=== PATIENT | female | born 1965 | race Caucasian/White ===

== ENCOUNTER 2018-02-03 15:28 | Outpatient (CLI) | payer BC ==
[2018-02-03 16:44] LABS: Hemoglobin 13.7 g/dL (12.0-16.0); Mean Corpuscular Hemoglobin 32.6 pg (27.0-31.0); Mean Corpuscular Volume 90.6 fL (78.0-98.0); Mean Platelet Volume 6.4 fL (7.4-10.4); Platelet Count 480 thou/uL (130-400); RBC Distribution Width 11.3 % (11.5-14.5); White Blood Cell (WBC) Count 10.8 thou/uL (4.8-10.8)
[2018-02-03 16:51] LABS: BHCG - Serum Negative (NEGATIVE); Pregs Control Background? CLEAR/WHITE (CLR/WHITE); Pregs Control Bar Appear? YES (CONTROL BAR)
[2018-02-03 17:02] LABS: Anion Gap 13 mmol/L (10-20); BUN (Urea Nitrogen) 16 mg/dL (9.8-20.1); Calc. Creatinine Clearance 0 mL/min (70-130); Calcium 9.6 mg/dL (7.8-10.44); Carbon Dioxide 26 mmol/L (22-29); Chloride 101 mmol/L (98-107); Estimated GFR-MDRD 55; Glucose 93 mg/dL (70-105); Sodium 137 mmol/L (136-145)
--- NOTE | 2018-02-04 12:27 | EKG ---
Test Reason : Blood Pressure : / mmHG Vent. Rate : 078 BPM Atrial Rate : 078 BPM P-R Int : 138 ms QRS Dur : 088 ms QT Int : 402 ms P-R-T Axes : 007 053 027 degrees QTc Int : 458 ms Normal sinus rhythm Low voltage QRS Possible Inferior infarct , age undetermined No previous ECGs available Confirmed by CORTES URBAN, DR. Mueller ([id number]) on 02/04/2018 12:26:30 PM Referred By: NIK Confirmed By:DR. Ami KOLB MD
== END 2018-02-03 15:29 | disposition home or self-care (01) ==
LOC: LABBT 15:28
PROVIDERS: ATTEND Obstetrics & Gynecology
DX: Z01.818 Encounter for other preprocedural examination (principal); N92.6 Irregular menstruation, unspecified
CPT/HCPCS: 80048; 84703; 85027; 93005; 93010

== ENCOUNTER 2018-02-07 05:48 | Day surgery (SDC) | payer BC ==
[2018-02-03 15:46] VITALS: BMI 33.5
[2018-02-07] MEDS ORDERED: Calcium Chloride 1 GM/10 ML Abboject SYRINGE ONE (06:46)
[2018-02-07] MEDS ORDERED: Bupivacaine HCl 0.5%/Epinephrine 1:200,000/PF 30 ml Vial ONE (06:46)
[2018-02-07] MEDS ORDERED: Thrombin 5000 UNITS/5 ML VIAL ONE (06:46)
[2018-02-07] MEDS ORDERED: Fentanyl 250 MCG/5 ML VIAL ONE (06:48)
[2018-02-07] MEDS ORDERED: Fentanyl 100 MCG/2 ML VIAL ONE (06:48)
[2018-02-07] MEDS ORDERED: Famotidine/PF 20 mg/2ml Vial ONE (06:48)
[2018-02-07] MEDS ORDERED: CEFAZOLIN/Water 2 GM/20 ML SYRINGE ONE (07:03)
[2018-02-07] MEDS ORDERED: Scopolamine 1.5 mg/72 hour Patch ONE (07:04)
[2018-02-07] MEDS ORDERED: hydrALAZINE 20 MG/ML VIAL ONE (08:31)
[2018-02-07] MEDS ORDERED: Promethazine HCl 25 MG/ML VIAL SLOW IVP PRN (09:55)
[2018-02-07] MEDS ORDERED: Ondansetron HCl/PF 4 MG/2 ML Vial IVP PRN ×2 (09:55→10:29)
[2018-02-07] MEDS ORDERED: Promethazine HCl 25 MG/ML VIAL IM PRN ×2 (09:55→10:29)
[2018-02-07] MEDS ORDERED: Meperidine HCl/PF 25 MG/ML VIAL SLOW IVP PRN (09:55)
[2018-02-07] MEDS ORDERED: Zolpidem Tartrate 5 MG TAB PO PRN (10:29)
[2018-02-07] MEDS ORDERED: HYDROcodone/Acetaminophen 10/325 mg Tablet PO PRN ×2 (10:29)
[2018-02-07] MEDS ORDERED: Simethicone Chewable 80 MG TAB PO PRN (10:29)
[2018-02-07] MEDS ORDERED: diphenhydrAMINE 25 MG CAP PO PRN (10:29)
[2018-02-07] MEDS ORDERED: Bisacodyl 10 MG SUPP PR PRN (10:29)
[2018-02-07] MEDS ORDERED: PROPOFOL 20 ML ONE (11:39)
[2018-02-07] MEDS ORDERED: Promethazine HCl 25 MG/ML VIAL ONE (11:57)
[2018-02-07] MEDS ORDERED: Ondansetron ODT 4 MG TAB ONE (12:14)
--- NOTE | 2018-02-07 13:54 | OP ---
DATE OF SERVICE: 02/07/2018 ADMITTING DIAGNOSES: 1. A 53-year-old female with menorrhagia and dysmenorrhea. 2. Fibroid uterus. 3. Irregular menstruation. 4. Body mass index of 34.25. POSTOPERATIVE DIAGNOSES: 1. A 53-year-old female with menorrhagia and dysmenorrhea. 2. Fibroid uterus. 3. Irregular menstruation. 4. Body mass index of 34.25. SURGEON: Darcie Sommers M.D. EXPORT FREIGHT SPECIALIST: None. PROCEDURES PERFORMED: 1. Robotic total laparoscopic hysterectomy. 2. Bilateral salpingectomy. 3. Lysis of adhesions. 4. Enterolysis. 5. Autologous hepatocyte infusion. ESTIMATED BLOOD LOSS: Less than 100 mL URINE OUTPUT: Clear draining in the [place] approximately 300 mL at the end of the case. ANESTHESIA: General. SPECIAL MEDICATIONS: Ancef 2 grams IV guidance and control system engineer to the OR. CLINICAL HISTORY: The patient is a 53-year-old female, who presented to my office for eval uation for her irregular menses. She had been on control pills since the except for her pregnancies. She had 3 pregnancies that went to term, one was a low transverse section, the following two are vaginal after cesareans. The patient noted that for several years she did n ot have a withdrawal bleed when she had a hormone free interval in the last week of her pills, but la st month, she started having periods again and then to begin rapidly cycling having another period in 2 weeks' time. She also noted completion of her child birthing and desired evaluation. She had an ultrasound and exam done, which showed a fibroid uterus and given her long history of being on control pills, it was a concern that she may not regulate with hormonal methods. The risks, benefits , and possible complications as well as alternatives were discussed for surgical management versus co nservative management. The patient chose to have a hysterectomy. DETAILS OF THE PROCEDURE: The patient was taken to the operating room where general anesthesia was o btained. She was laid in the supine position with her legs in the Yellofin stirrups. She was preppe d and draped in the usual sterile fashion. A weighted speculum was placed into the vagina and a Fole y catheter was placed atraumatically with drainage of clear urine. The JAYLON uterine manipulator was placed after dilation was performed and stay sutures were placed to secure this JAYLON to the uterus. Once this uterine manipulator was established, the legs were placed in a downward position. All inst ruments were removed except for the manipulator and attention was turned to the abdomen, where the ab domen was tented and incision was made in the lower infraumbilical border and a direct view 5 mm troc ar was used to enter into the abdomen. Once this was placed, insufflation of the abdomen occurred an d the patient was placed in steep Trendelenburg. The accessory ports were placed on the left and rig ht lower quadrants under direct visualization of 8 mm trocars. The assistance port was then placed i n the right lower quadrant below the right accessory ports that with an 11 mm trocar. Once these tro cars were placed, the robot was docked and the surgery ensued as follows. The salpinx on the right s yamilet was grasped and elevated and noted normal ovary. The mesosalpinx was dissected to release the ri ght salpinx and the round ligament was taken down with the monopolar spatula after desiccating with t he bipolar clamps. Once the round was taken and the IP was then grasped and desiccated with successi ve bites. The vascular space was then opened up and a bladder flap was created anteriorly, skeletoni zing the uterine arteries. The same was performed on the opposite side, releasing the left salpinx t aking down the round. The IP was taken down then the uterine vessels were skeletonized. The Bipolar was used to desiccate and occlude the uterine arteries on the left. The bladder flap was created an teriorly and connected to the opposite side, creating the shelf. The arteries on the opposite side w ere taken down and ligated. This allowed for more defined uterine shelf. The juncture of the cervic al vaginal area was identified and circumferential incision was made, releasing the uterus and allowi ng the uterus to drop downward when pulled from the outside into the vagina, it was maintained there to keep insufflation in the abdomen. The vaginal cuff was then closed with a running V-Loc suture wi th excellent hemostasis afterwards. The surgery was technically difficult, mainly because of the bow el getting in the way of the visualization. Once the cuff was closed, the abdomen was copiously irri gated and autologous hepatocyte solution was placed over the denuded areas on the ovarian pedicles as well as the vaginal cuff. Once the infusion was completed, the trocar sites were removed after undo cking the robot under direct visualization and the abdomen was deflated of the CO2 gas. The 11 mm as sistance port site and the umbilicus were both closed at the fascia using a UR needle. The skin was then closed with a 3-0 Monocryl with excellent hemostasis. Steri-Strips and Mastisol were placed ove r these incisions and Band-Aids were placed over these. The uterus was then removed from the vagina and sent off for pathology and the patient was cleansed and redraped and transferred to a [facility] recovery room in satisfactory condition. All needle, sponge, lap, and instrument counts were bruce ect x2. There were no other issues surrounding this surgery.
[2018-02-07] MEDS ORDERED: Glycopyrrolate 0.2 MG/ML 5 ML SYRINGE ONE (15:39)
[2018-02-07] MEDS ORDERED: Dexamethasone 20 MG/5 ML VIAL ONE (15:39)
[2018-02-07] MEDS ORDERED: Ketorolac Tromethamine 30 MG/ML VIAL ONE (15:39)
[2018-02-07] MEDS ORDERED: Lidocaine 1% PF 5 ML VIAL ONE (15:39)
[2018-02-07] MEDS ORDERED: Esmolol 100 MG/10 ML VIAL ONE (15:39)
[2018-02-07] MEDS ORDERED: Ondansetron HCl/PF 4 MG/2 ML Vial ONE (15:39)
[2018-02-07] MEDS ORDERED: PROPOFOL 200 MG/20 ML VIAL ONE (15:39)
[2018-02-07] MEDS ORDERED: ePHEDrine/0.9% NaCl/PF SYRINGE 50 mg/10 ml ONE (15:39)
[2018-02-07] MEDS: Ketorolac Tromethamine 30 MG/ML VIAL IVP SCH ×3 (16:13→22:32)
[2018-02-07] MEDS: Lactated Ringer's 1,000 ML IV SCH (17:55)
[2018-02-08] MEDS: Lactated Ringer's 1,000 ML IV SCH ×2 (02:26→04:48)
[2018-02-08] MEDS: Ketorolac Tromethamine 30 MG/ML VIAL IVP SCH (04:54)
[2018-02-08 08:14] VITALS: BP 117/59
[2018-02-08 11:48] VITALS: TEMP 97.9
[2018-02-12] MEDS ORDERED: Ibuprofen 800 MG TAB PO SCH (22:00)
== END 2018-02-08 13:20 | disposition home or self-care (01) ==
LOC: SDC 05:48 → 3SE 12:48 → EDSTATUS 15:51 → SDC 02-08 13:20
PROVIDERS: ATTEND Obstetrics & Gynecology
PROC: 0UT94ZZ Resection of Uterus, Percutaneous Endoscopic Approach (ICD-10-PCS; principal; 2018-02-07)
PROC: 0UT74ZZ Resection of Bilateral Fallopian Tubes, Percutaneous Endoscopic Approach (ICD-10-PCS; principal; 2018-02-07)
DX: D25.9 Leiomyoma of uterus, unspecified (principal); N73.6 Female pelvic peritoneal adhesions (postinfective); I10 Essential (primary) hypertension; K21.9 Gastro-esophageal reflux disease without esophagitis; F41.9 Anxiety disorder, unspecified; Z68.34 Body mass index [BMI] 34.0-34.9, adult; Z79.899 Other long term (current) drug therapy
CPT/HCPCS: 88307; 96374; 96375; 96376; A4216; J0131; J0360; J0670; J1100; J1885; J2001; J2405; J2550; J2704; J3010; Q0162; S0028

== ENCOUNTER 2018-06-20 15:15 | Outpatient (CLI) | payer BC ==
--- NOTE | 2018-06-20 17:52 | MRI ---
LEFT KNEE MRI WITHOUT IV CONTRAST 06/20/18 HISTORY: 53-year-old female with history of internal derangement of the left knee, M23.92, left knee pain for several months without associated recent injury. Multiplanar and multisequence MRI examination of the left knee is performed. There is joint fluid wit h distention of the suprapatellar recess as well as a moderate sized popliteal fossa cyst. There is t ricompartment articular cartilage loss including central and lateral patellar facet cartilage and med ial compartment cartilage loss followed by lateral compartment cartilage loss. Irregular flap tear of the posterior horn of the medial meniscus near the posterior root. Focal area of abnormal marrow tara ma involving the anterior aspect of the medial tibial plateau which may well represent an insufficien cy type fracture. The lateral meniscus appears unremarkable. The anterior and posterior cruciate liga ments, collateral ligament complexes and quadriceps and patellar tendons and extensor mechanism are u nremarkable. No acute osteochondral defect. IMPRESSION: Evidence for joint effusion with some distention of the suprapatellar recess as well as small to mode rate popliteal fossa cyst. Irregular flap tear posterior horn, posterior root medial meniscus. Small focus of marrow signal involving the anterior medial tibial plateau, possibly a small insufficiency f racture. Other findings as above. POS: VALDEZ
== END 2018-06-20 15:16 | disposition home or self-care (01) ==
LOC: BICMRI 15:15
PROVIDERS: ATTEND Orthopaedic Surgery
DX: M23.92 Unspecified internal derangement of left knee (principal); M25.462 Effusion, left knee; S83.242A Other tear of medial meniscus, current injury, left knee, initial encounter; M71.22 Synovial cyst of popliteal space [Baker], left knee; R93.7 Abnormal findings on diagnostic imaging of other parts of musculoskeletal system

== ENCOUNTER 2018-07-10 05:08 | Outpatient (CLI) | payer BC ==
[2018-07-10 09:34] LABS: #Basophils 0.1 thou/uL (0.0-0.2); #Eosinphils 0.3 thou/uL (0.0-0.7); #Lymphocytes 2.2 thou/uL (1.20-3.40); #Monocytes 0.9 thou/uL (0.11-0.59); #Neutrophils 7.9 thou/uL (1.40-6.50); %Basophils 0.7 % (0.0-1.0); %Eosinophils 2.3 % (0.0-10.0); %Lymphocytes 19.2 % (21.0-51.0); %Monocytes 7.6 % (0.0-10.0); %Neutrophils 70.1 % (42.0-75.0); Hemoglobin 14.2 g/dL (12.0-16.0); Mean Corpuscular HGB CONC 32.5 g/dL (32.0-36.0); Mean Corpuscular Hemoglobin 29.9 pg (27.0-31.0); Mean Corpuscular Volume 92.1 fL (78.0-98.0); Mean Platelet Volume 6.8 fL (7.4-10.4); Platelet Count 476 thou/uL (130-400); RBC Distribution Width 11.8 % (11.5-14.5); Red Blood Cell (RBC) Count 4.74 mill/uL (4.20-5.40); White Blood Cell (WBC) Count 11.2 thou/uL (4.8-10.8)
[2018-07-10 09:51] LABS: Anion Gap 14 mmol/L (10-20); BUN (Urea Nitrogen) 17 mg/dL (9.8-20.1); Calc. Creatinine Clearance 0 mL/min (70-130); Calcium 10.1 mg/dL (7.8-10.44); Carbon Dioxide 29 mmol/L (22-29); Chloride 98 mmol/L (98-107); Estimated GFR-MDRD 52; Glucose 91 mg/dL (70-105); Potassium 3.5 mmol/L (3.5-5.1); Sodium 137 mmol/L (136-145)
== END 2018-07-10 05:09 | disposition home or self-care (01) ==
LOC: LABBT 05:08
PROVIDERS: ATTEND Orthopaedic Surgery
DX: Z01.818 Encounter for other preprocedural examination (principal); S83.242A Other tear of medial meniscus, current injury, left knee, initial encounter
CPT/HCPCS: 80048; 85025; 93005; 93010

== ENCOUNTER 2018-07-16 06:08 | Day surgery (SDC) | payer BC ==
[2018-07-16] MEDS ORDERED: Scopolamine 1.5 mg/72 hour Patch ONE (06:50)
[2018-07-16] MEDS ORDERED: Midazolam HCl 2 mg/2 ml Vial ONE (06:50)
[2018-07-16] MEDS ORDERED: Ondansetron PF 4 MG/2 ML Vial ONE (06:50)
[2018-07-16] MEDS ORDERED: Bupivacaine HCl 0.5%/Epinephrine 1:200,000/PF 30 ml Vial ONE (06:54)
[2018-07-16] MEDS ORDERED: CEFAZOLIN 2 GM/50 ML BAG ONE (06:59)
[2018-07-16] MEDS ORDERED: Fentanyl 100 MCG/2 ML VIAL ONE (07:42)
[2018-07-16] MEDS ORDERED: HYDROcodone/Acetaminophen 5/325 mg Tablet ONE (09:33)
--- NOTE | 2018-07-16 09:54 | OP ---
DATE OF PROCEDURE: 07/16/2018 ANESTHESIA: General. PREOPERATIVE DIAGNOSES: Medial meniscal tear and degenerative joint disease, left knee. POSTOPERATIVE DIAGNOSES: Medial meniscal tear and degenerative joint disease, left knee. PROCEDURE PERFORMED: Arthroscopy left knee with partial medial meniscectomy and chondroplasty of medial femoral condyle and patella. OPERATIVE FINDING: Examination under anesthesia revealed the knee to be stable. On arthroscopy, there was mild synovitis. There were several cartilaginous loose bodies floating in the knee, which appeared to be flecks of articular surface primarily from the medial femoral condyle. There was grade 2 and early grade 3 changes of the patella, but no evidence of exposed bone. Mild changes of the trochlear groove. There was diffuse grade 2 and early grade 3 changes of the weightbearing surface of medial femoral condyle and a small flap tear of the posterior horn of medial meniscus at the meniscal root. ACL was intact. Lateral meniscus was intact with some slight fraying of the free margin of the meniscus but the bulk of meniscus was intact and lateral compartment appeared to be normal. DESCRIPTION OF PROCEDURE: After satisfactory anesthesia was induced in supine position, the patient was placed in a leg rice and then prepped and draped in routine manner. The left leg was elevated and exsanguinated with an Esmarch bandage and the tourniquet inflated to 300 mmHg. Murdock arthroscope was introduced through the anterolateral portal and probed through an anteromedial portal and inflow and outflow accomplished through the scope using a BuscoTurno arthroscopy pump. Arthroscopy was carried out and the above findings were noted. All findings were documented with the video printer and hard copies were made. Posterior horn of the medial meniscus was debrided with use of basket forceps and motorized shaver and the medial femoral condyle debrided with a motorized shaver. The meniscal root was probed and found to be stable. The patella was also shaved with a motorized shaver. The scope was introduced in the anteromedial portal and all compartments were visualized and no additional pathology found. The knee was copiously irrigated through the scope and all instruments were withdrawn. A 20 mL of 0.5% Marcaine with epinephrine was instilled into the knee joint and additional 10 mL injected about the portal sites. Portal sites were closed with 3-0 nylon and a sterile bulky compressive dressing was applied and the tourniquet deflated after 24 minutes. The foot promptly pinked up. The patient was awakened, taken to recovery room in stable condition. There were no apparent intraoperative complications. The estimated blood loss was negligible. The patient will be discharged home in satisfactory condition to use ice and elevation, and to use crutches, home exercise program with Physical Therapy Department. She was given written wound care instructions and a prescription for [place] 7.5 for pain 40 tablets. She will be rechecked in my office in 10 to 14 days or sooner if there are any problems prior to that time. Job ID: [id number]
[2018-07-16] MEDS ORDERED: Ondansetron ODT 4 MG TAB ONE (10:14)
== END 2018-07-16 10:55 | disposition home or self-care (01) ==
LOC: SDC 06:08
PROVIDERS: ATTEND Orthopaedic Surgery
PROC: 0SBD4ZZ Excision of Left Knee Joint, Percutaneous Endoscopic Approach (ICD-10-PCS; principal; 2018-07-16)
DX: M23.222 Derangement of posterior horn of medial meniscus due to old tear or injury, left knee (principal); M17.12 Unilateral primary osteoarthritis, left knee; I10 Essential (primary) hypertension; E66.9 Obesity, unspecified; E78.5 Hyperlipidemia, unspecified; Z90.49 Acquired absence of other specified parts of digestive tract; Z79.1 Long term (current) use of non-steroidal anti-inflammatories (NSAID); Z79.899 Other long term (current) drug therapy; Z98.890 Other specified postprocedural states
CPT/HCPCS: J0670; J2250; J2405; J3010; Q0162

== ENCOUNTER 2019-07-16 12:12 | Outpatient (CLI) | payer BC ==
--- NOTE | 2019-07-16 14:27 | MMO ---
Bilateral MAMMO Bilat Screen [facility]. CLINICAL HISTORY: Patient is 54 years old and is seen for screening. The patient has the following family history of breast cancer: paternal aunt, malignant (generic). The patient has no personal history of cancer. VIEWS: The views performed were: bilateral craniocaudal with tomosynthesis and bilateral mediolateral oblique with tomosynthesis. FILMS COMPARED: The present examination has been compared to prior imaging studies performed at [facility] on 02/16/2008, 07/21/2010, 08/24/2013 and 07/12/2016. This study has been interpreted with the assistance of computer-aided detection. MAMMOGRAM FINDINGS: There are scattered fibroglandular densities. There is a stable focal asymmetry seen in the upper-outer region of the right breast. There are no suspicious masses, suspicious calcifications, or new areas of architectural distortion. IMPRESSION: THERE IS NO MAMMOGRAPHIC EVIDENCE OF MALIGNANCY. A ROUTINE FOLLOW-UP MAMMOGRAM IN 1 YEAR IS RECOMMENDED. THE RESULTS OF THIS EXAM WERE SENT TO THE PATIENT. ACR BI-RADS Category 2 - Benign finding MAMMOGRAPHY NOTE: 1. A negative mammogram report should not delay a biopsy if a dominant of clinically suspicious mass is present. 2. Approximately 10% to 15% of breast cancers are not detected by mammography. 3. Adenosis and dense breasts may obscure an underlying neoplasm. Reported by: ELA VELÁZQUEZ MD Electonically Signed: [id number]
== END 2019-07-16 12:13 | disposition home or self-care (01) ==
LOC: BICMAMMO 12:12
PROVIDERS: ATTEND Family Medicine
DX: Z12.31 Encounter for screening mammogram for malignant neoplasm of breast (principal); Z80.3 Family history of malignant neoplasm of breast
CPT/HCPCS: 77063; 77067

== ENCOUNTER 2020-08-18 16:11 | Outpatient (CLI) | payer BC ==
--- NOTE | 2020-08-19 08:32 | MMO ---
Bilateral MAMMO Bilat Screen [facility]DI[facility]. CLINICAL HISTORY: Patient is 55 years old and is seen for screening. The patient has the following family history of breast cancer: paternal aunt, malignant (generic). The patient has no personal history of cancer. VIEWS: The views performed were: bilateral craniocaudal with tomosynthesis and bilateral mediolateral oblique with tomosynthesis. FILMS COMPARED: The present examination has been compared to prior imaging studies performed at [facility] on 07/21/2010, 08/24/2013, 07/12/2016 and 07/16/2019. This study has been interpreted with the assistance of computer-aided detection. MAMMOGRAM FINDINGS: There are scattered fibroglandular densities. There are no suspicious masses, suspicious calcifications, or new areas of architectural distortion. IMPRESSION: THERE IS NO MAMMOGRAPHIC EVIDENCE OF MALIGNANCY. A ROUTINE FOLLOW-UP MAMMOGRAM IN 1 YEAR IS RECOMMENDED. THE RESULTS OF THIS EXAM WERE SENT TO THE PATIENT. ACR BI-RADS Category 1 - Negative MAMMOGRAPHY NOTE: 1. A negative mammogram report should not delay a biopsy if a dominant of clinically suspicious mass is present. 2. Approximately 10% to 15% of breast cancers are not detected by mammography. 3. Adenosis and dense breasts may obscure an underlying neoplasm. Reported by: LIGIA BROWN MD Electonically Signed: [id number]
== END 2020-08-18 16:12 | disposition home or self-care (01) ==
LOC: BICMAMMO 16:11
PROVIDERS: ATTEND Family Medicine
DX: Z12.31 Encounter for screening mammogram for malignant neoplasm of breast (principal); Z80.3 Family history of malignant neoplasm of breast
CPT/HCPCS: 77063; 77067

== ENCOUNTER 2024-07-27 15:45 | Outpatient (CLI) | payer BC | END 2024-07-27 15:46 | disposition home or self-care (01) | LOC: BICMAMMO 15:45 | PROVIDERS: ATTEND Nurse Practitioner Family | DX: Z12.31 Encounter for screening mammogram for malignant neoplasm of breast (principal); N64.89 Other specified disorders of breast; Z80.3 Family history of malignant neoplasm of breast | CPT/HCPCS: 77063; 77067 ==

== ENCOUNTER 2024-08-14 13:58 | Outpatient (CLI) | payer BC | END 2024-08-14 13:59 | disposition home or self-care (01) | LOC: BICMAMMO 13:58 | PROVIDERS: ATTEND Nurse Practitioner Family | DX: N64.89 Other specified disorders of breast (principal) | CPT/HCPCS: G0279 ==

== ENCOUNTER 2025-04-27 10:02 | Outpatient (CLI) | payer BC ==
[2025-04-27 11:07] LABS: #Basophils 0.04 10x3/uL (0.0-0.2); #Eosinophils 0.15 10x3/uL (0.0-0.7); #Monocytes 0.68 10x3/uL (0.11-0.59); #Neutrophils 5.01 10x3/uL (1.40-6.50); %Basophils 0.5 % (0.0-1.0); %Eosinophils 1.9 % (0.0-10.0); %Lymphocytes 24.5 % (21.0-51.0); %Monocytes 8.7 % (0.0-10.0); %Neutrophils 64.1 % (42.0-75.0); Hematocrit 43.5 % (36.0-47.0); Hemoglobin 13.7 g/dL (12.0-16.0); Mean Corpuscular Hemoglobin 29.5 pg (27.0-31.0); Mean Corpuscular Volume 93.5 fL (78.0-98.0); Platelet Count 356 10x3/uL (130-400); Red Blood Cell (RBC) Count 4.65 mill/uL (4.20-5.40); White Blood Cell (WBC) Count 7.81 10x3/uL (4.8-10.8)
[2025-04-27 11:25] LABS: INR-International Normal Ratio 1.0; Prothrombin Time 13.6 sec (12.0-14.7)
[2025-04-27 11:29] LABS: Anion Gap 15 mmol/L (10-20); BUN (Urea Nitrogen) 20 mg/dL (9.8-20.1); Calc. Creatinine Clearance 0 mL/min (70-130); Calcium 9.7 mg/dL (7.8-10.44); Carbon Dioxide 21 mmol/L (23-31); Chloride 107 mmol/L (98-107); Glucose 102 mg/dL (80-115); Potassium 3.9 mmol/L (3.5-5.1); Sodium 139 mmol/L (136-145)
== END 2025-04-27 10:03 | disposition home or self-care (01) ==
LOC: LABBT 10:02
PROVIDERS: ATTEND Orthopaedic Surgery
DX: Z01.818 Encounter for other preprocedural examination (principal); M17.32 Unilateral post-traumatic osteoarthritis, left knee
CPT/HCPCS: 80048; 85025; 85610; 87081; 93005; 93010

== ENCOUNTER 2025-05-04 07:05 | Observation (INO) | payer BC ==
[2025-04-27 10:29] VITALS: BMI 32.8
[2025-05-04] MEDS ORDERED: Ropivacaine 0.5% HCl/PF (150 MG/30 ML VIAL) ONE (07:38)
[2025-05-04] MEDS ORDERED: Tranexamic Acid 1,000 MG/10 ML VIAL ONE (07:40)
[2025-05-04] MEDS ORDERED: Vancomycin 1 GM/200 ML (FROZEN) BAG ONE (07:41)
[2025-05-04] MEDS ORDERED: CEFAZOLIN 2 GM VIAL ONE (08:42)
[2025-05-04] MEDS ORDERED: Lidocaine 1% PF 5 ML VIAL ONE (09:09)
[2025-05-04] MEDS ORDERED: PROPOFOL 20 ML ONE (09:09)
[2025-05-04] MEDS ORDERED: HYDROcodone/Acetaminophen 10/325 mg Tablet PO PRN (09:30)
[2025-05-04] MEDS ORDERED: Ondansetron PF 4 MG/2 ML Vial IVP PRN (09:30)
[2025-05-04] MEDS ORDERED: Ropivacaine 0.2% 550 ML 550 ML NERVE BLCK SCH (09:30)
[2025-05-04] MEDS ORDERED: Ondansetron PF 4 MG/2 ML Vial ONE (09:32)
[2025-05-04] MEDS ORDERED: PHENYLEPHRINE-NS 100 MCG/ML 10 ML SYRINGE ONE (09:32)
[2025-05-04] MEDS ORDERED: diphenhydrAMINE 25 MG CAP PO PRN (11:10)
[2025-05-04] MEDS ORDERED: Acetaminophen 325 MG TAB PO PRN (11:10)
[2025-05-04] MEDS ORDERED: fentaNYL PF 100 MCG/2 ML SYRINGE ONE (11:24)
[2025-05-04] MEDS ORDERED: Ketorolac Tromethamine 30 MG (1 mL) VIAL ONE (11:31)
[2025-05-04] MEDS ORDERED: HYDROmorphone 0.5 MG/0.5 ML SYRINGE ONE (11:53)
[2025-05-04] MEDS: Ketorolac Tromethamine 30 MG (1 mL) VIAL IVP SCH (14:30)
[2025-05-04] MEDS: Ondansetron PF 4 MG/2 ML Vial IVP PRN (15:18)
[2025-05-04] MEDS: Aspirin 81 mg Enteric Coated Tablet PO SCH (21:12)
[2025-05-05 06:20] LABS: Hematocrit 38.1 % (36.0-47.0); Hemoglobin 11.9 g/dL (12.0-16.0); Mean Corpuscular Hemoglobin 29.1 pg (27.0-31.0); Mean Corpuscular Volume 93.2 fL (78.0-98.0); Platelet Count 324 10x3/uL (130-400); Red Blood Cell (RBC) Count 4.09 mill/uL (4.20-5.40); White Blood Cell (WBC) Count 12.90 10x3/uL (4.8-10.8)
[2025-05-05] MEDS ORDERED: FLU (Fluarix Triv) 25-26 (6MOS UP)/PF 45 MCG/0.5 ML Syringe IM ONE (09:00)
[2025-05-05] MEDS: Senokot S 8.6-50 MG TAB PO SCH (09:52)
[2025-05-05] MEDS: Ferrous Gluconate 324 MG TAB PO SCH (09:52)
[2025-05-05] MEDS: Losartan 25 MG TAB PO SCH (09:54)
[2025-05-05] MEDS: Multivitamin W/ Minerals 1 TAB PO SCH (09:54)
[2025-05-05] MEDS: HYDROcodone/Acetaminophen 10/325 mg Tablet PO PRN (09:55)
[2025-05-05 12:03] VITALS: BP 123/70; TEMP 97.9
== END 2025-05-05 14:45 | disposition home or self-care (01) ==
LOC: SDC 07:05 → SURG B 14:00 → SDC 15:17
PROVIDERS: ADMIT Orthopaedic Surgery; ATTEND Orthopaedic Surgery
PROC: 0SRD0JZ Replacement of Left Knee Joint with Synthetic Substitute, Open Approach (ICD-10-PCS; principal; 2025-05-04)
PROC: 3E0T3BZ Introduction of Anesthetic Agent into Peripheral Nerves and Plexi, Percutaneous Approach (ICD-10-PCS; 2025-05-04)
DX: M17.12 Unilateral primary osteoarthritis, left knee (principal); E78.5 Hyperlipidemia, unspecified; Z87.59 Personal history of other complications of pregnancy, childbirth and the puerperium; Z90.710 Acquired absence of both cervix and uterus; Z90.49 Acquired absence of other specified parts of digestive tract; Z88.0 Allergy status to penicillin
CPT/HCPCS: 0055T; 27447; 64448; 85027; A4306; C1713; C1776; C1889; J0169; J0665; J1100; J1171; J1885; J2250; J2405; J2550; J2704; J2795; J3010; J3373